=== PATIENT | male | born 1970 | race Caucasian/White ===

== ENCOUNTER 2023-12-14 12:06 | Outpatient (REF) | payer OTHER, SELFPAY ==
[2023-12-14 14:37] LABS: Abs Immature Grans 0.06 10^3/uL (0.0-0.06); Absolute Basophil Count 0.08 10^3/uL (0.0-0.2); Absolute Eosinophil Count 0.42 10^3/uL (0.0-0.7); Absolute Lymphocyte Count 2.43 10^3/uL (1.2-3.4); Absolute Monocyte Count 0.54 10^3/uL (0.1-0.8); Absolute Neutrophil Count 4.18 10^3/uL (1.2-6.7); Eosinophils % 5.4; HCT 43.9 % (40.0-50.0); HGB 14.9 g/dL (13.5-17.5); Immature Grans % 0.8; Lymphocytes % 31.5; MCH 29.3 pg (27.0-33.0); MCHC 33.9 % (32.0-36.0); MCV 86 fL (80-95); MPV 10.4 fL (8.0-11.0); Neutrophils % 54.3; Platelet Count 300 10^3/uL (130-400); RBC 5.09 10^6/uL (4.36-5.78); RDW 12.2 % (11.8-14.1); RDW-SD 38.6 fL; WBC 7.71 10^3/uL (4.4-10.8)
[2023-12-14 15:24] LABS: ALT 46 U/L (16-63); AST 28 U/L (15-37); Albumin 4.1 g/dL (3.4-5.0); Alkaline Phosphatase 63 U/L (46-116); Anion Gap 7.5 mmol/L (3-11); BUN 13 mg/dL (7-18); Bilirubin, Total 0.4 mg/dL (0.2-1.0); CO2 30.5 mmol/L (21.0-32.0); Calcium 9.5 mg/dL (8.5-10.1); Calculated LDL 187 mg/dL (<100); Chloride 103 mmol/L (98-107); Cholesterol 301 mg/dL (<200); Estimated GFR 89.44 (mL/min/1.73m2); Glucose 102 mg/dL (74-106); HDL Cholesterol 64 mg/dL (40-60); Potassium 4.5 mmol/L (3.5-5.1); Sodium 141 mmol/L (136-145); Total Protein 7.6 g/dL (6.4-8.2); Triglyceride 250 mg/dL (<150)
[2023-12-14 16:02] LABS: C-Reactive Protein < 0.50 mg/dL (<or=0.5)
== END 2023-12-14 12:07 | disposition home or self-care (01) ==
LOC: NCHCN 12:06
PROVIDERS: Referring Provider Family Medicine; Visit Provider Family Medicine
DX: E78.5 Hyperlipidemia, unspecified (principal); K51.90 Ulcerative colitis, unspecified, without complications
CPT/HCPCS: 80053; 80061; 85025; 86140

== ENCOUNTER 2024-06-28 15:51 | Outpatient (REF) | payer OTHER, SELFPAY ==
[2024-06-28 18:21] LABS: ALT 34 U/L (16-63); AST 24 U/L (15-37); Albumin 4.1 g/dL (3.4-5.0); Alkaline Phosphatase 71 U/L (46-116); Anion Gap 10.3 mmol/L (3-11); BUN 19 mg/dL (7-18); Bilirubin, Total 0.55 mg/dL (0.2-1.0); CO2 25.7 mmol/L (21.0-32.0); Calcium 9.7 mg/dL (8.5-10.1); Calculated LDL 172 mg/dL (<100); Chloride 104 mmol/L (98-107); Cholesterol 269 mg/dL (<200); Estimated GFR 89.44 (mL/min/1.73m2); Glucose 110 mg/dL (74-106); HDL Cholesterol 67 mg/dL (40-60); Potassium 4.2 mmol/L (3.5-5.1); Sodium 140 mmol/L (136-145); Total Protein 7.5 g/dL (6.4-8.2); Triglyceride 154 mg/dL (<150); Vitamin B12 1471 pg/mL (193-986); Vitamin D 25 Total 25.5 ng/mL (30-100)
[2024-06-28 18:43] LABS: C-Reactive Protein < 0.50 mg/dL (<or=0.5)
== END 2024-06-28 15:52 | disposition home or self-care (01) ==
LOC: NCHCN 15:51
PROVIDERS: Visit Provider Family Medicine
DX: Z00.00 Encounter for general adult medical examination without abnormal findings (principal); E66.9 Obesity, unspecified
CPT/HCPCS: 80053; 80061; 82306; 82607; 86140

== ENCOUNTER 2025-02-08 10:23 | Outpatient (REF) | payer OTHER, SELFPAY ==
[2025-02-08 15:13] LABS: Anion Gap 10.1 mmol/L (3-11); BUN 19 mg/dL (7-18); CO2 27.9 mmol/L (21.0-32.0); Calcium 9.8 mg/dL (8.5-10.1); Chloride 104 mmol/L (98-107); Estimated GFR 88.88 (mL/min/1.73m2); Glucose 95 mg/dL (74-106); Sodium 142 mmol/L (136-145)
== END 2025-02-08 10:24 | disposition home or self-care (01) ==
LOC: NCHCN 10:23
PROVIDERS: PCP Family Medicine; Visit Provider Family Medicine
DX: I10 Essential (primary) hypertension (principal)
CPT/HCPCS: 80048

== ENCOUNTER 2025-07-01 17:35 | Outpatient (REF) | payer OTHER, SELFPAY ==
[2025-07-01 15:32] LABS: ALT 63 U/L (16-63); AST 52 U/L (15-37); Albumin 4.0 g/dL (3.4-5.0); Alkaline Phosphatase 65 U/L (46-116); Anion Gap 6.9 mmol/L (3-11); BUN 15 mg/dL (7-18); Bilirubin, Total 0.5 mg/dL (0.2-1.0); C-Reactive Protein 0.74 mg/dL (<or=0.5); CO2 31.1 mmol/L (21.0-32.0); Calcium 9.7 mg/dL (8.5-10.1); Chloride 103 mmol/L (98-107); Estimated GFR 100.86 (mL/min/1.73m2); Glucose 95 mg/dL (74-106); Potassium 4.2 mmol/L (3.5-5.1); Sodium 141 mmol/L (136-145); Total Protein 7.7 g/dL (6.4-8.2)
[2025-07-02 15:36] LABS: Calculated LDL 203 mg/dL (<100); Cholesterol 289 mg/dL (<200); HDL Cholesterol 49 mg/dL (>or=40); Triglyceride 188 mg/dL (<150); Vitamin D 25 Total 39 ng/mL (30-100)
== END 2025-07-01 17:36 | disposition home or self-care (01) ==
LOC: NCHCN 17:35
PROVIDERS: PCP Family Medicine; Visit Provider Family Medicine
DX: E55.9 Vitamin D deficiency, unspecified (principal); K51.90 Ulcerative colitis, unspecified, without complications; E78.5 Hyperlipidemia, unspecified
CPT/HCPCS: 80053; 80061; 82306; 86140